=== PATIENT | female | born 1995 | race Two or more races ===

== ENCOUNTER 2017-04-24 20:29 | Emergency (ER) | payer MEDICAID ==
[~2017-04-24] VITALS: Ht 175.3 cm; Wt 59.0 kg
[~2017-04-24 20:29] MED LIST: AUGMENTIN250 MG/51 ORAL; IBUPROFEN600 MG ORAL; NKM
[2017-04-24 20:44] VITALS: BP 104/62
[2017-04-24] MEDS ORDERED: IBUPROFEN600 MG ORAL (20:53)
[2017-04-24] MEDS ORDERED: Ketorolac 60mg Inj IM ONE (21:00)
[2017-04-24 21:28] VITALS: BP 91/52
--- NOTE | 2017-04-25 14:03 | Emergency Room Report ---
History of Present Illness General Chief Complaint: Fever Source: Patient Present Illness HPI 21YOF [employer] patient with 3 days muscle aches. Subjective fever. Denies sore throat, earache, abd pain, chest pain, SOB, cough, urinary complaints, sick contacts Mom gave Nyquill one time this afternoon. No other OTC meds given Patient denies PMHx Allergies: Coded Allergies: No Known Allergies (Unverified , 08/23/13) Patient History Past Medical History: none Past Surgical History: none Pertinent Family History: none Social History: Denies: smoking, alcohol use, drug use Last Menstrual Period: 04/16/17 Now: No Immunizations: UTD Reviewed Nursing Documentation: PMH: Agreed, PSxH: Agreed Nursing Documentation-PMH Past Medical History: No Stated History Review of Systems All Other Systems: negative except mentioned in HPI Physical Exam Vital Signs Date Time Temp Pulse Resp B/P (MAP) Pulse Ox O2 Delivery O2 Flow Rate FiO2 04/24/17 20:36 102.9 134 22 100/67 99 Room Air Sp02 EP Interpretation: reviewed, normal General Appearance: normal inspection, well appearing, no apparent distress, alert, GCS 15, non-toxic Head: normocephalic, atraumatic Eyes: bilateral eye PERRL, bilateral eye EOMI ENT: normal ENT inspection, hearing grossly normal, normal voice Neck: normal inspection, full range of motion, supple, no bony tend Respiratory: normal inspection, lungs clear, normal breath sounds, no respiratory distress, no retraction, no wheezing Cardiovascular #1: regular rate, rhythm, no edema Gastrointestinal: normal inspection, normal bowel sounds, non tender, soft, no guarding, no hernia Genitourinary: no CVA tenderness Musculoskeletal: normal inspection, back normal, normal range of motion, Dorinda' s Sign negative Neurologic: normal inspection, alert, oriented x3, responsive, ambulatory care coordinator III-XII nml as tested, motor strength/tone normal, speech normal Psychiatric: normal inspection, judgement/insight normal, mood/affect normal Skin: normal inspection, normal color, no rash Lymphatic: normal inspection, no adenopathy Medical Decision Making Diagnostic Impression: Primary Impression: Myalgia ER Course Myalgias and fever Otherwise very well appearing Elected for IM toradol Was observed in ED with resolution of fever On exam, no evidence of bacterial infection in oropharynx, ears, chest, abdomen , urine Rx Ibuprofen, rest, fluids PMD followup DC home Last Vital Signs Date Time Temp Pulse Resp B/P (MAP) Pulse Ox O2 Delivery O2 Flow Rate FiO2 04/24/17 21:28 99.0 69 18 91/52 99 Room Air Status: improved Disposition: HOME, SELF-CARE Condition: Improved Scripts Ibuprofen* (MOTRIN*) 600 Mg Tablet 600 MG ORAL THREE TIMES A DAY for pain, fever for 7 Days, #30 TAB 0 Refills Prov: CHON BALLESTEROS M.D. 04/24/17 Referrals: NON PHYSICIAN Departure Forms: Return to Work Return to Work in (Days): 1 Return to Work Date: Apr 26, 2017 Patient Instructions: Influenza, Adult, [id number], Fever, Adult Additional Instructions: - Take motrin every 8 hours with food for fever/body aches - Rest, drink lots of fluid, eat healthy food - Follow up with primary care doctor in 2-3 days CHON BALLESTEROS M.D. Apr 25, 2017 14:03
== END 2017-04-24 21:30 | disposition home or self-care (01) ==
LOC: EMR 21:30
DX: M79.1 Myalgia (principal); R50.9 Fever, unspecified
CPT/HCPCS: 96372; 99283